=== PATIENT | male | born 1980 | race African-American/Black ===

== ENCOUNTER 2018-11-03 15:35 | Emergency (ER) | payer OTHER ==
[~2018-11-03] VITALS: Ht 185.4 cm; Wt 98.4 kg
[2018-11-03 19:36] VITALS: BP 121/70
== END 2018-11-03 19:36 | disposition home or self-care (01) ==
LOC: ED 15:35
DX: S62.664A Nondisplaced fracture of distal phalanx of right ring finger, initial encounter for closed fracture (principal); S60.352A Superficial foreign body of left thumb, initial encounter; W25.XXXA Contact with sharp glass, initial encounter; Y93.89 Activity, other specified; Y92.89 Other specified places as the place of occurrence of the external cause; Y99.8 Other external cause status
CPT/HCPCS: 90715; J1885